=== PATIENT | female | born 1930 | race Caucasian/White ===

== ENCOUNTER 2017-06-06 12:51 | Emergency (ER) | payer BC, OTHER ==
[~2017-06-06] VITALS: Ht 160 cm; Wt 80.1 kg
[2017-06-06 13:08] VITALS: TEMP 37.3; Ht 160 cm; Wt 80.1 kg
--- NOTE | 2017-06-06 15:11 | DIAGNOSTIC IMAGING REPORT ---
ULTRASOUND KIDNEYS AND BLADDER CLINICAL HISTORY: Hematuria. COMPARISON STUDY: No priors. TECHNIQUE: Real-time, grayscale, and color flow sonography of the kidneys and bladder is performed. Images are reviewed in the transverse and longitudinal planes. FINDINGS: Kidneys: The kidneys are atrophic. The right kidney measures 10.5 x 4.1 x 4.2 cm and the left kidney measures 10.0 x 4.9 x 4.7 cm. There is no hydronephrosis. No shadowing renal calculi are identified. Left renal cysts measure up to 1.5 cm There is no sonographic evidence of solid renal mass lesion. No perinephric fluid is identified. Bladder: The bladder is decompressed around a Chau catheter and not well evaluated. Upper abdomen: Survey images of the left upper quadrant show splenic megaly. The spleen measures 15.1 cm in length. IMPRESSION: 1. The kidneys are atrophic and without hydronephrosis. 2. The bladder was decompressed around a Chau catheter and could not be assessed. 3. Splenomegaly. Electronically signed by: Audi Crowe M.D. 06/06/2017 3:09 PM Dictated Date/Time: 06/06/2017 3:07 PM
[2017-06-06 15:22] LABS: BASO % 0.3 %; BASO ABS # 0.02 K/uL (0-0.2); COMPLETE YES; EOS % 3.3 %; HEMATOCRIT 29.4 % (37-47); IG% 0.3 %; LYMPH % 13.4 %; MEAN PLATELET VOLUME 10.8 fL (7.4-10.4); MONO % 7.7 %; PLATELET COUNT 109 K/uL (130-400); PROTHROMBIN TIME (PATIENT) 11.2 SECONDS (9.0-12.0); RED BLOOD COUNT 3.23 M/uL (4.2-5.4); WHITE BLOOD COUNT 6.74 K/uL (4.8-10.8)
[2017-06-06 15:27] LABS: BUN/CREATININE RATIO 18.8 (10-20); CALCIUM 9.9 mg/dl (8.5-10.1); CREATININE 2.1 mg/dl (0.60-1.20); POTASSIUM 5.2 mmol/L (3.5-5.1)
[2017-06-06] MEDS ORDERED: ALPR-411 PO (15:28)
[2017-06-06] MEDS ORDERED: HYDR-5688 PO (15:28)
[2017-06-06] MEDS ORDERED: FURO-85 PO (15:28)
[2017-06-06] MEDS ORDERED: METO25TA56 PO (15:28)
[2017-06-06 15:29] LABS: MANUAL MICROSCOPIC REQUIRED? YES; URINE APPEARANCE CLOUDY (CLEAR); URINE COLOR BROWN; URINE NITRITE POS (NEG); URINE PH 6.5 (4.5-7.5); URINE SPECIFIC GRAVITY 1.025 (1.000-1.030); UROBILINOGEN NEG (NEG)
[2017-06-06 15:31] LABS: REVIEW REQ? NO; URINE BILIRUBIN NEG (NEG)
[2017-06-06 15:34] LABS: URINE BACTERIA 1+ (NEG); URINE RBC >30 /hpf (0-4); URINE WBC >30 /hpf (0-5); ZZUR CULT IF INDIC CLEAN CATCH YES
[2017-06-06] MEDS ORDERED: SODIUM CHLORIDE 0.9% 500ML 500 ML IV STA (15:55)
[2017-06-06] MEDS ORDERED: CEPH500C PO (17:27)
[2017-06-06 17:39] VITALS: BP 151/65; PULSE 70; O2SAT 97
--- NOTE | 2017-06-06 18:05 | EMERGENCY ROOM VISIT NOTE ---
History Report prepared by Kaitlynn: Juma Faust Under the Supervision of: Dr. Michael Holliday D.O. First contact with patient: 13:53 Chief Complaint: URINARY SYMPTOMS Stated Complaint: BLOOD IN URINE, SENT BY Nursing Triage Summary: Dark colored urine. No pain. History of Present Illness The patient is a 87 year old female who presents to the Emergency Room with complaints of persistent urinary symptoms beginning yesterday. Her symptoms include dark colored urine, difficulty with urination, and hematuria. She was seen at the [facility] ED for hematuria yesterday and had two blood clots removed from her urinary tract following the placement of a Chau and the inability to urinate. The patient was referred to the [facility] ED to see urology. Patient denies any headaches, change in vision, neck pain, chest pain, shortness breath, dizziness, lightheadedness, weakness, abdominal pain, nausea, vomiting or fevers above 100.4. Source of History: patient Onset: Yesterday Quality: other Timing: other (persistent) Associated Symptoms: No chest pain, No abdominal pain Review of Systems See HPI for pertinent positives & negatives. A total of 10 systems reviewed and were otherwise negative. Past Medical & Surgical Medical Problems: (1) HTN (hypertension) Surgical Problems: (1) H/O: hysterectomy Family History No pertinent family history stated. Social History Smoking Status: Never Smoker Occupation Status: retired Current/Historical Medications Scheduled Alprazolam (Xanax), 0.25 MG PO UD Cephalexin Monohydrate (Keflex), 500 MG PO TID Metoprolol Tartrate (Lopressor) (Lopressor), 25 MG PO BID Scheduled PRN Hydrocodone/Acetaminophen 5MG/325MG ([place] 5MG/325MG), 1 TABLET PO UD PRN for Pain Miscellaneous Medications Furosemide (Lasix), 20 MG PO Allergies Coded Allergies: Penicillins (Unverified Allergy, Unknown, rash, 06/06/17) Physical Exam Vital Signs Date Time Temp Pulse Resp B/P (MAP) Pulse Ox O2 Delivery O2 Flow Rate FiO2 06/06/17 17:39 70 18 151/65 97 Room Air 06/06/17 16:31 70 18 156/81 97 Room Air 06/06/17 15:05 63 19 157/64 97 Room Air 06/06/17 13:08 37.3 76 20 148/64 98 Room Air Physical Exam GENERAL: Sitting up in bed, alert, well appearing, well nourished, no distress, non-toxic EYE EXAM: normal conjunctiva. OROPHARYNX: no exudate, no erythema, lips, buccal mucosa, and tongue normal and mucous membranes are moist NECK: supple, no nuchal rigidity, no adenopathy, non-tender LUNGS: Clear to auscultation. Normal chest wall mechanics HEART: no murmurs, S1 normal and S2 normal ABDOMEN: abdomen soft, non-tender, normo-active bowel sounds, no masses, no rebound or guarding. BACK: Back is symmetrical on inspection and there is no deformity, no midline tenderness, no CVA tenderness. SKIN: no rashes and no bruising UPPER EXTREMITIES: upper extremities are grossly normal. LOWER EXTREMITIES: No pitting edema. Chau bag located on the right thigh draining blood tinged urine. NEURO EXAM: Normal sensorium, cranial nerves II-XII grossly intact, normal speech, no gross weakness of arms, no gross weakness of legs. Medical Decision & Procedures ER Provider Diagnostic Interpretation: US:Per my review, radiologist interpretation. ULTRASOUND KIDNEYS AND BLADDER FINDINGS: Kidneys: The kidneys are atrophic. The right kidney measures 10.5 x 4.1 x 4.2 cm and the left kidney measures 10.0 x 4.9 x 4.7 cm. There is no hydronephrosis. No shadowing renal calculi are identified. Left renal cysts measure up to 1.5 cm There is no sonographic evidence of solid renal mass lesion. No perinephric fluid is identified. Bladder: The bladder is decompressed around a Chau catheter and not well evaluated. Upper abdomen: Survey images of the left upper quadrant show splenic megaly. The spleen measures 15.1 cm in length. IMPRESSION: 1. The kidneys are atrophic and without hydronephrosis. 2. The bladder was decompressed around a Chau catheter and could not be assessed. 3. Splenomegaly. Electronically signed by: Audi Crowe M.D. 06/06/2017 3:[address] results obtained from [facility] CT Abdomen & Pelvis without contrast (06/05/2017) IMPRESSION: 45 mm lobulated hyperdense lesion in the right side of the urinary bladder. This may all represent hemorrhage. An underlying mass should be considered, particularly since a mass was identified on an earlier CT. Cystoscopy is advised. No renal or ureteral calculi. Chronic and postoperative findings as above, including a stable 29 mm left lower abdomen soft tissue mass. Laboratory Results 06/06/17 14:25 Red Blood Count 3.23, Mean Corpuscular Volume 91.0, Mean Corpuscular Hemoglobin 30.0, Mean Corpuscular Hemoglobin Concent 33.0, Mean Platelet Volume 10.8, Neutrophils (%) (Auto) 75.0, Lymphocytes (%) (Auto) 13.4, Monocytes (%) (Auto) 7.7, Eosinophils (%) (Auto) 3.3, Basophils (%) (Auto) 0.3, Neutrophils # (Auto) 5.06, Lymphocytes # (Auto) 0.90, Monocytes # (Auto) 0.52, Eosinophils # (Auto) 0.22, Basophils # (Auto) 0.02 06/06/17 14:25 Test 06/06/17 14:25 06/06/17 14:30 White Blood Count 6.74 K/uL (4.8-10.8) Red Blood Count 3.23 M/uL (4.2-5.4) Hemoglobin 9.7 g/dL (12.0-16.0) Hematocrit 29.4 % (37-47) Mean Corpuscular Volume 91.0 fL (80-100) Mean Corpuscular Hemoglobin 30.0 pg (25-34) Mean Corpuscular Hemoglobin Concent 33.0 g/dl (32-36) Platelet Count 109 K/uL (130-400) Mean Platelet Volume 10.8 fL (7.4-10.4) Neutrophils (%) (Auto) 75.0 % Lymphocytes (%) (Auto) 13.4 % Monocytes (%) (Auto) 7.7 % Eosinophils (%) (Auto) 3.3 % Basophils (%) (Auto) 0.3 % Neutrophils # (Auto) 5.06 K/uL (1.4-6.5) Lymphocytes # (Auto) 0.90 K/uL (1.2-3.4) Monocytes # (Auto) 0.52 K/uL (0.11-0.59) Eosinophils # (Auto) 0.22 K/uL (0-0.5) Basophils # (Auto) 0.02 K/uL (0-0.2) RDW Standard Deviation 45.2 fL (36.4-46.3) RDW Coefficient of Variation 13.5 % (11.5-14.5) Immature Granulocyte % (Auto) 0.3 % Immature Granulocyte # (Auto) 0.02 K/uL (0.00-0.02) Prothrombin Time 11.2 SECONDS (9.0-12.0) Prothromb Time International Ratio 1.0 (0.9-1.1) Anion Gap 8.0 mmol/L (3-11) Est Creatinine Clear Calc Drug Dose 19.3 ml/min Estimated GFR () 24.1 Estimated GFR (Non- 20.8 BUN/Creatinine Ratio 18.8 (10-20) Calcium Level 9.9 mg/dl (8.5-10.1) Total Bilirubin 0.4 mg/dl (0.2-1) Direct Bilirubin 0.2 mg/dl (0-0.2) Aspartate Amino Transf (AST/SGOT) 20 U/L (15-37) Alanine Aminotransferase (ALT/SGPT) 42 U/L (12-78) Alkaline Phosphatase 223 U/L (45-117) Total Creatine Kinase 136 U/L (26-192) Total Protein 7.7 gm/dl (6.4-8.2) Albumin 3.7 gm/dl (3.4-5.0) Lipase 193 U/L (73-393) Urine Color BROWN Urine Appearance CLOUDY (CLEAR) Urine pH 6.5 (4.5-7.5) Urine Specific Lorman 1.025 (1.000-1.030) Urine Protein 3+ (NEG) Urine Glucose (UA) NEG (NEG) Urine Ketones TRACE (NEG) Urine Occult Blood 3+ (NEG) Urine Nitrite POS (NEG) Urine Bilirubin NEG (NEG) Urine Urobilinogen NEG (NEG) Urine Leukocyte Esterase TRACE (NEG) Urine RBC >30 /hpf (0-4) Urine WBC >30 /hpf (0-5) Urine Epithelial Cells >30 /lpf (0-5) Urine Bacteria 1+ (NEG) Laboratory results per my review. Medications Administered Medications (Trade) Dose Ordered Sig/Jessica Route Start Time Stop Time Status Last Admin Dose Admin Sodium Chloride 500 ml @ 999 mls/hr Q31M STAT IV 06/06/17 15:55 06/06/17 16:25 DC 06/06/17 15:55 999 MLS/HR ED Course ED COURSE: Vital signs were reviewed and showed mild hypertension. The patients medical record was reviewed The above diagnostic studies were performed and reviewed. ED treatments and interventions as stated above. 1401: The patient was evaluated in room C5. A complete history and physical examination was performed. 1555: Ordered Sodium Chloride 500 ml @ 999 mls/hr IV. 1745: Upon reevaluation, the patient is resting comfortably. I discussed my findings with the patient and she understands and agrees with the treatment plan. Based on the patients age, coexisting illnesses, exam and lab findings the decision to treat as an outpatient was made. The patient remained stable while under my care. The patient appeared well at the time of discharge. Medical Decision Differential diagnoses includes but is not limited to gastritis, peptic ulcer disease, GERD, gallbladder disease, pancreatitis, small bowel obstruction, acute coronary syndrome, pericarditis, ischemic bowel, irritable bowel disease, irritable bowel syndrome, appendicitis, diverticulitis, malignancy, hernia, urinary tract infection, torsion, /ectopic , perforation, trauma, infectious. Patient is an 87-year-old female who presents to ER referred in by her primary care doctor. She was seen yesterday at [facility] ER yesterday as she was having hematuria and difficulty urinating. Chau was placed at that time. CT done as well which showed 45 mm mass in the bladder which they questioned if it was blood versus a mass that they have seen on previous CTs in the bladder. I reviewed hemoglobin taken yesterday was 11 and her creatinine was 1.6. I had care management contact her PCPs office to get additional blood work. This was the same blood work that I obtained from [facility]. They have no additional blood work. BMP shows a potassium of 5.2. CO2 was slightly low at 20. Creatinine was elevated off of what appears to be her baseline of 1.6 to 2.1. LFTs bilirubin lipase was unremarkable. CK was normal. She was placed on Bactrim by the outside facility. Urine today has blood, nitrates, leukocytes , white cells and bacteria. I recommended stopping the Bactrim as this is nephrotoxic and could also increase her potassium. Patient will start Keflex. Discussed with urology. They will see her in the office tomorrow at 1145. She has not had any reactions to this. Updated Patient and family. Recommended holding Lasix tomorrow. Patient is completely otherwise asymptomatic. She has no complaints. Patient will see Dr. Santacruz tomorrow at 1145. With her baseline creatinine at 1.6 I felt was reasonable to have her followed up tomorrow with urology especially since there is no signs of obstruction with the renal ultrasound which was unremarkable and shows a decompressed bladder. Care management will set up an appointment with the PCP on to have repeat blood work to assess kidney function and potassium. Discussed with Pt concerning signs and symptoms to watch out for. Pt was instructed to follow up with their PCP and discussed with the patient their option to return to the ED at anytime for persistent or worsening symptoms. The appropriate anticipatory guidance and out-patient management, including indications for return to the emergency department, were explained at length to the patient and understood. Medication Reconcilliation Current Medication List: was personally reviewed by me Blood Pressure Screening Patient's blood pressure: Elevated blood pressure Blood pressure disposition: Elevated BP felt to be situational Consults Time Called: 1625 Consulting Physician: Dr. Santacruz -Urology Returned Call: [phone] I reviewed the patient's case with Dr. Santacruz. He will see the patient in the office tomorrow. Impression Primary Impression: Hematuria Additional Impressions: CKD (chronic kidney disease) Hyperkalemia BOLA (acute kidney injury) Scribe Attestation The scribe's documentation has been prepared under my direction and personally reviewed by me in its entirety. I confirm that the note above accurately reflects all work, treatment, procedures, and medical decision making performed by me. Departure Information Dispostion Home / Self-Care Prescriptions Cephalexin Monohydrate (Keflex) 500 Mg Cap 500 MG PO TID for 5 Days, #15 CAP Prov: Michael Hollidya, DO 06/06/17 Forms HOME CARE DOCUMENTATION FORM, IMPORTANT VISIT INFORMATION Patient Instructions Hematuria Poss Causes, My [facility] Additional Instructions Please follow up with urology tomorrow at 1145am. Any worsening of your symptoms, please return to the ED immediately. This includes any fevers greater than 100.4, worsening pain, chest pain, shortness breath, persistent nausea, vomiting, unable to eat or drink, unable to urinate, passing out, or any other concerning signs or symptoms from your standpoint. Please do not take your Lasix tonight. Please follow up with your primary care doctor in 48 hours to have a repeat BMP to check your creatinine and potassium. Please stop taking Bactrim and start taking Keflex as prescribed. Problem Qualifiers Primary Impression: Hematuria Hematuria type: unspecified type Qualified Codes: R31.9 - Hematuria, unspecified Additional Impressions: CKD (chronic kidney disease) Chronic kidney disease stage: unspecified stage Qualified Codes: N18.9 - Chronic kidney disease, unspecified
[2017-06-07] MEDS ORDERED: LISI-461 PO (17:17)
[2017-06-08] MEDS ORDERED: OXYC-57 PO (11:32)
[2017-06-08] MEDS ORDERED: PHEN-775 PO (11:32)
== END 2017-06-06 17:53 | disposition home or self-care (01) ==
LOC: C.EDB 12:55 → C.EDC 17:53
DX: R31.9 Hematuria, unspecified (principal); N18.9 Chronic kidney disease, unspecified; E87.5 Hyperkalemia; N17.9 Acute kidney failure, unspecified; I12.9 Hypertensive chronic kidney disease with stage 1 through stage 4 chronic kidney disease, or unspecified chronic kidney disease; Z79.899 Other long term (current) drug therapy

== ENCOUNTER 2017-06-08 08:06 | Day surgery (SDC) | payer BC ==
--- NOTE | 2017-06-07 15:05 | DIAGNOSTIC IMAGING REPORT ---
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 FINDINGS: The cardiac and mediastinal contours are normal. There is no evidence of focal pulmonary consolidation. There is no evidence of failure. No pleural effusions are visualized.[ IMPRESSION: No active disease in the chest. Electronically signed by: Davon Mary M.D. 06/07/2017 3:04 PM Dictated Date/Time: 06/07/2017 3:03 PM
[2017-06-07 17:19] VITALS: BMI 31.0
[~2017-06-08] VITALS: Ht 160 cm; Wt 81.0 kg
[~2017-06-08 08:06] MED LIST: ALPR-411 PO; CEPH500C PO; CIPROFLOXACIN / D5W 400 MG IV SCH; CIPROFLOXACIN 400MG / D5W IV SCH; DEXAMETHASONE SOD INJ 4 MG/ML VIAL ONE; FENTANYL CITRATE INJ 50 MCG/1 ML 2 ML VIAL ONE; LIDOCAINE HCL 2% 2 ML VIAL (20MG/ML) ONE; LISI-461 PO; ONDANSETRON INJ 2 MG/ML 2 ML VIAL ONE; PROPOFOL IV EMULSION 10 MG/ML 20 ML VIAL IV ONE; SODIUM CHLORIDE 0.9% 1000ML 1,000 ML IV SCH
[2017-06-08 08:38] VITALS: BP 148/60; PULSE 65; TEMP 36.8; O2SAT 98; Ht 160 cm; Wt 81.0 kg
--- NOTE | 2017-06-08 08:43 | History & Physical Bridge Note ---
H&P Re-Evaluation Bridge Note: I have examined the patient, reviewed the History & Physical and in the interval since the performance of the History & Physical I have noted the following changes of clinical significance: No changes noted
[2017-06-08 09:44] LABS: BUN/CREATININE RATIO 19.6 (10-20); CALCIUM 9.8 mg/dl (8.5-10.1); CREATININE 2.29 mg/dl (0.60-1.20); POTASSIUM 5.3 mmol/L (3.5-5.1)
[2017-06-08] MEDS ORDERED: MITOMYCIN FOR INJ 40 MG in SYRINGE 40 ML IR SCH (10:15)
[2017-06-08] MEDS ORDERED: CONRAY 30% 150ML BOTTLE ONE (10:19)
[2017-06-08] MEDS ORDERED: GLYCOPYRROLATE INJ 0.2 MG/ML VIAL ONE (10:37)
[2017-06-08] MEDS ORDERED: NEOSTIGMINE METHYLSULFATE 5 MG/5 ML SYR ONE (10:37)
[2017-06-08] MEDS ORDERED: ROCURONIUM BROMIDE 10 MG/ML 5 ML VIAL IV ONE (10:37)
[2017-06-08] MEDS ORDERED: EpHEDrine SULFATE INJ 50 MG/ML AMP ONE (10:42)
[2017-06-08] MEDS ORDERED: BELLADONNA/OPIUM SUPP 60 MG SUPP PR ONE ×2 (11:00→11:19)
[2017-06-08] MEDS: FENTANYL CITRATE INJ 50 MCG/1 ML 2 ML VIAL IV PRN ×2 (11:21→11:26)
[2017-06-08] MEDS ORDERED: FENTANYL CITRATE INJ 50 MCG/1 ML 2 ML VIAL ONE (11:22)
[2017-06-08] MEDS ORDERED: NALOXONE HCL 0.4 MG/1 ML VIAL/CARP IV PRN (11:30)
[2017-06-08] MEDS ORDERED: FLUMAZENIL 0.1 MG/1 ML 10 ML VIAL IV PRN (11:30)
[2017-06-08] MEDS ORDERED: EpHEDrine SULFATE INJ 50 MG/ML AMP IV PRN (11:30)
[2017-06-08] MEDS ORDERED: PROMETHAZINE HCL INJ 12.5 MG in SODIUM CHLORIDE 0.9% 50ML 50 ML IV PRN (11:30)
[2017-06-08] MEDS ORDERED: ATROPINE SULFATE 0.1 MG/ML 5ML SYR IV PRN (11:30)
[2017-06-08] MEDS ORDERED: ONDANSETRON INJ 2 MG/ML 2 ML VIAL IV PRN (11:30)
[2017-06-08] MEDS ORDERED: LABETALOL HCL IV 5 MG/ML 20ML IV PRN (11:30)
[2017-06-08] MEDS ORDERED: PHEN-775 PO (11:32)
[2017-06-08] MEDS ORDERED: OXYC-57 PO (11:32)
--- NOTE | 2017-06-08 11:35 | Discharge Instructions ---
Discharge Instructions Date of Service Jun 08, 2017. 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 Instructions / Follow-Up Instructions / Follow-Up In office for removal of catheter As scheduled in [facility] office for discussion of pathology results Will schedule for General Surgical consultation of abdominal masses Discharge Diet Recommended Diet: Regular Diet (good fluid intake) Procedures Procedures Performed: Transurethral Resection 5cc Bladder Tumor with Biopsy, Installation of Mitomycin Pending Studies Studies pending at discharge: yes List of pending studies: Pathology discussion Medical Emergencies . Who to Call and When: Medical Emergencies: If at any time you feel your situation is an emergency, please call 911 immediately. . Non-Emergent Contact Non-Emergency issues call your: Urologist Call Non-Emergent contact if: you have a fever, temperature is above 101, your pain is not controlled, your pain is worsening, your pain is unusual for you, your pain is concerning you, you have any medication questions . . "Provider Documentation" section prepared by Pancho Santacruz. . VTE Core Measure Inpt VTE Proph given/why not?: SCD's [place] Drug Monitoring Program Search Results: patient reviewed within database, see additional documentation (Rx for alprazolam, no recent narcotics)
--- NOTE | 2017-06-08 11:39 | [facility] Post Operative Brief Note ---
Immediate Operative Summary Operative Date Jun 08, 2017. Pre-Operative Diagnosis 5 cm bladder tumor Post-Operative Diagnosis 5 cm bladder tumor, multifocal Procedure(s) Performed Transurethral Resection 5cc Bladder Tumor with Biopsy, Installation of Mitomycin Surgeon Dr. Pancho Santacruz Oxygen Tank Filler Surgeon(s) None Estimated Blood Loss 30 mL Findings Complete resection of tumor, no bladder perforation after completion, small tumor on left lateral wall. Specimens Specimen A. Anterior Bladder Tumor Drains 20 fr 10 cc H2O Anesthesia GALMA Complication(s) None Disposition Recovery Room / PACU
[2017-06-08] MEDS ORDERED: PHENAZOPYRIDINE HCL 100 MG TAB PO PRN (11:45)
[2017-06-08] MEDS ORDERED: OXYCODONE/ACETAMINOPHEN 5-325 TAB PO PRN (11:45)
--- NOTE | 2017-06-08 11:48 | [facility] Operative Report ---
Operative Report Operative Date Jun 08, 2017. Pre-Operative Diagnosis 5 cm bladder tumor Post-Operative Diagnosis 5 cm bladder tumor, multifocal Procedure(s) Performed Transurethral Resection 5cc Bladder Tumor with Biopsy, Installation of Mitomycin Surgeon Dr. Pancho Santacruz Slp Surgeon(s) None Estimated Blood Loss 30 mL Findings Complete resection of tumor, no bladder perforation after completion, small tumor on left lateral wall. Specimens Specimen A. Anterior Bladder Tumor Drains 20 fr 10 cc H2O Anesthesia GALMA Complication(s) None Disposition Recovery Room / PACU Indications 87 yo female with a large bladder tumor found on office cystoscopy. Her prior CT scan and notes are reviewed, scanned into system. She is currently on Keflex , covered with IV Cipro for surgery today. SCDs BLE for DVT prophylaxis. Please see H&P for further details. Description of Procedure Patient was properly identified and brought into the operative suite after identification of appropriate consent chart. General anesthesia with laryngeal mask was initiated and patient was prepped and draped in the standard fashion for this procedure. Full timeout procedure was followed. 27 Colombian resectoscope was introduced into the bladder using a visual obturator and bladder was surveyed in its entirety. Ureteral orifices were noted to be uninvolved with tumor as was the posterior bladder and trigone. A large, papillary tumor with clot protruding from the right bladder dome was noted consistent with the patient's previous imaging and office cystoscopy findings. Using a bipolar loop this was resected down to the level of the base. Tumor fragments were irrigated free throughout the case and sent as bladder tumor. When the base of the tumor was approached these were sent separately as bladder tumor base. After this was complete no perforation of the bladder was appreciated. Bladder tumor was felt to be approximately 5 cm in size based on imaging and cystoscopy findings. Hemostasis was obtained using cautery via the bipolar button. Bladder was again inspected and some early papillary tumors on the left-hand side were noted, low-grade in appearance. These were simply fulgurated using the bipolar button. After this was complete no other evidence of abnormal mucosa or tumor was present. No residual tumor fragments were present within the bladder. Resectoscope was removed and a 20 Colombian Chau catheter with 10 mL of sterile water in the balloon was placed. 40 mg of mitomycin-C in 40 mL of water were instilled into the bladder and the Chau was clamped. Belladonna and opium suppository was provided for additional postoperative analgesia. Anesthesia was reversed and patient was transferred to the recovery room in stable condition. Follow-up care: Patient will be discharged home after her bladder is drained of the mitomycin-C after 2 hours of instillation. Trial void is planned as an outpatient next week. Prescription for Percocet and Pyridium or provided. Patient is currently being covered with Keflex. Care is discussed with the patient's family today in the postoperative period. Patient is instructed to contact our service should she note any fevers, chills, nausea, vomiting or other difficulties after surgery. I attest to the content of the Intraoperative Record and any orders documented therein. Any exceptions are noted below.
--- NOTE | 2017-06-08 11:49 | Anesthesiology Progress Note ---
Anesthesia Post Op Note Date & Time Jun 08, 2017 at 11:49 Vital Signs Pain Intensity: 2 Vital Signs Past 12 Hours Date Time Temp Pulse Resp B/P (MAP) Pulse Ox O2 Delivery O2 Flow Rate FiO2 06/08/17 11:40 55 16 149/69 97 Nasal Cannula 2 06/08/17 11:30 64 16 151/78 98 Oxymask 10 06/08/17 11:20 69 16 147/69 100 Oxymask 10 06/08/17 11:14 36.3 83 16 158/79 100 Oxymask 10 06/08/17 08:38 36.8 65 18 148/60 (89) 98 Room Air Notes Mental Status: alert / awake / arousable, participated in evaluation Pt Amnestic to Procedure: Yes Nausea / Vomiting: adequately controlled Pain: adequately controlled Airway Patency, RR, SpO2: stable & adequate BP & HR: stable & adequate Hydration State: stable & adequate Anesthetic Complications: no major complications apparent
[2017-06-08 12:00] VITALS: BP 135/60; PULSE 61; TEMP 36.4; O2SAT 95
[2017-06-08 12:29] VITALS: BP 136/55; PULSE 62; O2SAT 95
[2017-06-08 13:00] VITALS: BP 144/60; PULSE 84; TEMP 35.7; O2SAT 96
[2017-06-08 14:00] VITALS: BP 134/51; PULSE 78; TEMP 36.4; O2SAT 98
== END 2017-06-08 14:00 | disposition home or self-care (01) ==
LOC: C.ACU 08:06
PROVIDERS: ATTEND Urology
DX: C67.9 Malignant neoplasm of bladder, unspecified (principal)